=== PATIENT | female | born 1975 | race Caucasian/White ===

== ENCOUNTER 2019-10-23 10:21 | Emergency (ER) | payer MEDICAID ==
[~2019-10-23] VITALS: Ht 165.1 cm; Wt 67.0 kg
[~2019-10-23 10:21] MED LIST: CRAN200C PO; DICY10CA88 PO; HYDR-3686 PO; HYDR-4353 PO; TRAM50TA2 PO; [UNRECOGNIZED DRUG - OTHER]
[2019-10-23 10:30] VITALS: BP 126/73
== END 2019-10-23 12:01 | disposition home or self-care (01) ==
LOC: ER 10:22
DX: M79.641 Pain in right hand (principal); Z88.2 Allergy status to sulfonamides; Z88.1 Allergy status to other antibiotic agents; Z88.0 Allergy status to penicillin; Z79.899 Other long term (current) drug therapy
CPT/HCPCS: 29125; 73110; 99283

== ENCOUNTER 2022-02-05 19:09 | Emergency (ER) | payer MEDICAID ==
[~2022-02-05] VITALS: Ht 165.1 cm; Wt 68.2 kg
--- NOTE | 2022-02-05 19:27 | NUR ---
patient in c collar at this time
[2022-02-05] MEDS ORDERED: ketorolac trometh inj. 60 MG/2 ML VIAL IM ONE (22:00)
[2022-02-05] MEDS ORDERED: orphenadrine citrate 60mg/2ml inj. IM ONE (22:00)
[2022-02-05] MEDS ORDERED: IBUP-1986 PO (22:52)
[2022-02-05] MEDS ORDERED: CYCL-1 PO (22:52)
[2022-02-05 23:12] VITALS: BP 135/84
== END 2022-02-05 23:15 | disposition home or self-care (01) ==
LOC: ER 19:11
DX: M54.2 Cervicalgia (principal); Z88.1 Allergy status to other antibiotic agents; Z88.8 Allergy status to other drugs, medicaments and biological substances; Z79.899 Other long term (current) drug therapy; V89.2XXA Person injured in unspecified motor-vehicle accident, traffic, initial encounter; Y93.89 Activity, other specified; Y92.89 Other specified places as the place of occurrence of the external cause; Y99.8 Other external cause status
CPT/HCPCS: 72125; 96372; 99284; J1885; J2360

== ENCOUNTER 2023-06-25 11:58 | Emergency (ER) | payer MEDICAID ==
[~2023-06-25] VITALS: Ht 165.1 cm; Wt 70.5 kg
[~2023-06-25 11:58] MED LIST changes: +CYCL-1 PO; +IBUP-1986 PO
[2023-06-25 13:05] VITALS: BP 161/87; PULSE 77; RESP 18; O2SAT 100
[2023-06-25] MEDS ORDERED: DIF150T PO (15:42)
[2023-06-25 16:34] LABS: BASOPHILS # (AUTO) 0.2 X10'3 (0-0.2); BASOPHILS % (AUTO) 1.4 % (0-1); EOSINOPHILS # (AUTO) 0.3 X10'3 (0-0.9); EOSINOPHILS % (AUTO) 2.6 % (0-6); HEMATOCRIT 43.4 % (35.0-45.0); HEMOGLOBIN 14.5 g/dl (12.0-16.0); LYMPHOCYTES # (AUTO) 2.8 X10'3 (1.1-4.8); LYMPHOCYTES % (AUTO) 23.8 % (21-51); MEAN CORPUSCULAR HGB CONC 33.3 g/dL (33.0-36.5); MEAN CORPUSCULAR VOLUME 93.1 FL (78-98); MEAN PLATELET VOLUME 8.4 FL (7.4-10.4); MONOCYTES % (AUTO) 8.2 % (2-12); NEUTROPHILS # (AUTO) 7.6 X10'3 (1.8-7.7); PLATELET COUNT 341 X10'3 (140-440); RED BLOOD COUNT 4.67 X10'6 (4.20-5.60); RED CELL DISTRIBUTION WIDTH 13.2 % (11.5-14.5); WHITE BLOOD COUNT 11.9 X10'3 (4.5-11.0)
[2023-06-25 16:46] LABS: ALANINE AMINOTRANSFERASE 25 U/L (12-78); ALBUMIN 4.3 G/DL (3.4-5.0); ALBUMIN/GLOBULIN RATIO 1.1 (1.1-1.5); ALKALINE PHOSPHATASE 77 IU/L (46-116); ANION GAP 9 (8-16); ASPARTATE AMINO TRANSFERASE 15 U/L (10-37); BILIRUBIN,TOTAL 0.4 MG/DL (0.1-1.0); BLOOD UREA NITROGEN 14 MG/DL (7-18); BUN/CREATININE RATIO 17.7 (10.0-20.0); CALCIUM 9.6 MG/DL (8.5-10.1); CHLORIDE 102 MMOL/L (99-107); CREATININE 0.79 MG/DL (0.40-0.90); GLUCOSE 100 MG/DL (70-104); POTASSIUM 3.7 MMOL/L (3.5-5.1); SODIUM 139 MMOL/L (135-145); TOTAL CARBON DIOXIDE 27.7 MMOL/L (24-32); TOTAL PROTEIN 8.2 G/DL (6.4-8.2); eCRCL 78 ML/MIN; eGFR 77 ML/MIN
[2023-06-25 17:21] VITALS: TEMP 97.6
== END 2023-06-25 17:21 | disposition home or self-care (01) ==
LOC: ER 11:59
DX: B35.2 Tinea manuum (principal); B35.3 Tinea pedis; B35.1 Tinea unguium; F12.10 Cannabis abuse, uncomplicated; Z88.1 Allergy status to other antibiotic agents; Z88.2 Allergy status to sulfonamides; Z79.899 Other long term (current) drug therapy
CPT/HCPCS: 36415; 80053; 85025; 99283